=== PATIENT | male | born 1980 | race Caucasian/White ===

== ENCOUNTER 2017-02-07 23:16 | Emergency (ER) | payer OTHER ==
[2017-02-08 00:37] VITALS: BP 130/87
== END 2017-02-08 00:37 | disposition home or self-care (01) ==
LOC: ED 23:16
DX: S81.811A Laceration without foreign body, right lower leg, initial encounter (principal); W25.XXXA Contact with sharp glass, initial encounter; V89.2XXA Person injured in unspecified motor-vehicle accident, traffic, initial encounter; Y93.89 Activity, other specified; Y92.89 Other specified places as the place of occurrence of the external cause; Y99.8 Other external cause status